=== PATIENT | male | born 1960 | race Two or more races ===

== ENCOUNTER → 2023-02-27 06:00 | Outpatient (CLI) | payer OTHER ==
[~2023-02-27 06:00] MED LIST: CIPRO500 MG PO; KETO10TA2 PO; PLAVIX75 MG PO; TAMS0.4C PO; VAZALORE81 MG PO
== END | disposition home or self-care (01) ==
LOC: LAB 06:00 → ADM 12:45 → EDSTATUS 03-04 12:45 → CIR.AMB 03-04 12:45 → AMB-ENDOS 03-04 12:45
PROVIDERS: ATTEND Colon & Rectal Surgery
DX: Z20.828 Contact with and (suspected) exposure to other viral communicable diseases (principal); Z20.822 Contact with and (suspected) exposure to COVID-19; Z11.59 Encounter for screening for other viral diseases

== ENCOUNTER 2023-03-04 11:11 | Emergency (ER) | payer OTHER ==
[~2023-03-04] VITALS: Ht 180.3 cm; Wt 69.9 kg
[2023-03-04] MEDS ORDERED: PLAVIX75 MG PO (11:48)
[2023-03-04] MEDS ORDERED: VAZALORE81 MG PO (11:49)
[2023-03-04] MEDS ORDERED: CIPRO500 MG PO (18:07)
[2023-03-04] MEDS ORDERED: TAMS0.4C PO (18:07)
[2023-03-04] MEDS ORDERED: KETO10TA2 PO (18:07)
== END 2023-03-04 18:29 | disposition home or self-care (01) ==
LOC: ER 11:11
DX: N20.9 Urinary calculus, unspecified (principal); Z88.9 Allergy status to unspecified drugs, medicaments and biological substances; Z88.3 Allergy status to other anti-infective agents

== ENCOUNTER → 2023-04-03 06:00 | Outpatient (CLI) | payer OTHER | END | disposition home or self-care (01) | LOC: LAB 06:00 → ADM 15:30 → EDSTATUS 04-08 15:30 → AMB-ENDOS 04-08 15:30 | PROVIDERS: ATTEND Colon & Rectal Surgery | DX: Z11.59 Encounter for screening for other viral diseases (principal); Z20.828 Contact with and (suspected) exposure to other viral communicable diseases ==

== ENCOUNTER 2023-06-10 06:28 | Day surgery (SDC) | payer OTHER | END 2023-06-10 11:15 | disposition home or self-care (01) | LOC: AMB-ENDOS 06:28 | PROVIDERS: ATTEND Colon & Rectal Surgery | DX: K62.5 Hemorrhage of anus and rectum (principal); K63.5 Polyp of colon; K62.1 Rectal polyp; Z88.8 Allergy status to other drugs, medicaments and biological substances; K64.8 Other hemorrhoids; Z20.822 Contact with and (suspected) exposure to COVID-19 ==